=== PATIENT | female | born 1945 | race Caucasian/White ===

== ENCOUNTER 2022-05-02 14:59 | Outpatient (CLI) | payer MEDICARE, SELFPAY ==
--- NOTE | ~2022-05-02 | MM_ITS ---
EXAMINATION: MM screening karl BI w meghan HISTORY: Screening TECHNIQUE: Craniocaudal and mediolateral oblique 3-D tomosynthesis images were obtained and synthetic 2-D images were generated. CAD analysis was submitted and interpreted. COMPARISON: Comparison to multiple prior studies sequentially, with oldest reviewed study dated 10/28. BREAST PARENCHYMAL COMPOSITION: The breasts are extremely dense, which lowers the sensitivity of mamm ography FINDINGS: There is no evidence of suspicious mass, calcification, or architectural distortion to sugg est malignancy in either breast. There has been no suspicious interval change. IMPRESSION: 1. No mammographic evidence of malignancy. 2. Recommend routine screening mammography in one year. BI-RADS Category 1: Negative Reviewed, dictated and finalized at location A.
--- NOTE | ~2022-05-02 | DEXA_ITS ---
Bone Density Report Name: HARRY STUART Age: 76 Sex: Female Ethnicity: White Date of : 1945 Indication: postmenopausal; screening for osteoporosis; Referring Provider: KRIS AREVALO Study: Bone densitometry was performed. Exam Date: May 02, 2022 Accession number: [id number] Bone Density: Region BMD T-score Z-score Classification AP Spine(L1-L4) 0.801 -2.2 0.3 Osteopenia Femoral Neck (Left) 0.606 -2.2 0.0 Osteopenia Total Hip (Left) 0.505 -3.6 -1.7 Osteoporosis Femoral Neck (Right) 0.629 -2.0 0.2 Osteopenia Total Hip (Right) 0.756 -1.5 0.3 Osteopenia Total Hip Mean 0.630 -2.6 -0.7 Osteoporosis World Health Organization criteria for BMD impression classify patients as: Normal (T-score at or above -1.0), Osteopenia (T-score between -1.0 and -2.5), or Osteoporosis (T-score at or below -2.5). Clinical Information Provided by Patient: Smokes Has used the following medications: Vitamin D, Calcium Patient maximum height was 66 Menopause Age: 50 No regular weight bearing exercise Onset of menses at age 14 Number of children 2 Impression: The patient has osteoporosis, based on the Left Total Hip T-score. The patient has risk factors, including: smoking. Discussion: INCREASED RISK OF FRACTURE. BONE DENSITY IS UNDESIRABLY LOW AT ONE OR MORE SKELETAL SITES, CONSISTENT WITH POSTMENOPAUSAL OSTEOPOROSIS. This patient's lowest T-score meets the World Health Organization's (WHO) criteria for osteoporosis at one or more sites (T-score -2.5 or below). In untreated patients, the risk of osteoporotic fracture increases approximately two-fold for each 1.0 SD decrease in T-score. Low bone density is not the only risk factor for fracture; also consider factors such as patient's age, frailty or poor health, risk of falling, risk of injury, previous osteoporotic fracture, family history of osteoporosis, cigarette smoking, low body weight, etc. Not everyone with low bone mineral density has osteoporosis; osteomalacia and other metabolic bone disorders should also be considered. Patients who have osteoporosis should be evaluated for specific diseases and conditions (secondary causes) that may cause or contribute to bone loss. The [place] Association [employer] Endocrinologists (AACE) and National Osteoporosis Foundation (NOF) recommend pharmacologic intervention for all postmenopausal women whose T-score is in this range. The patient should follow a healthful lifestyle (good nutrition with adequate calcium and vitamin D, and appropriate weight-bearing exercise). Follow-Up: Consider a repeat BMD and Vertebral Fracture Assessment (VFA) exam in 2 years or sooner if medically necessary, to reassess this patient's status. Reported by: MAURY on 05/02/2022 3:26:00 PM. Reviewed, dictated and finalized at location AAna MAYFIELD
== END 2022-05-02 15:00 | disposition home or self-care (01) ==
PROVIDERS: PCP Family Medicine; Visit Provider Nurse Practitioner Family
DX: Z12.31 Encounter for screening mammogram for malignant neoplasm of breast (principal); Z78.0 Asymptomatic menopausal state; M85.89 Other specified disorders of bone density and structure, multiple sites
CPT/HCPCS: 77063; 77067; 77080

== ENCOUNTER 2022-08-18 15:27 | Outpatient (CLI) | payer MEDICARE, SELFPAY ==
[2022-08-18 19:15] LABS: Alanine Aminotransferase 15 U/L (6-35); Albumin Level 4.7 g/dL (3.5-5.1); Alkaline Phosphatase 75 U/L (38-126); Anion Gap 16 mmol/L (8-16); Aspartate Amino Transferase 24 U/L (14-36); Bilirubin,Total 0.5 mg/dL (0.2-1.3); Blood Urea Nitrogen 10 mg/dL (7-17); Calcium 10.4 mg/dL (8.4-10.2); Carbon Dioxide 28 mmol/L (22-30); Chloride 89 mmol/L (98-107); Estimated Glomerular Filt Rate > 60; Glucose 113 mg/dL (65-110); Potassium 3.1 mmol/L (3.4-5.0); Sodium 133 mmol/L (137-145)
[2022-08-18 19:33] LABS: Vitamin D 25 Hydroxy 96.2 ng/mL
== END 2022-08-18 15:28 | disposition home or self-care (01) ==
PROVIDERS: PCP Family Medicine; Visit Provider Nurse Practitioner Family
DX: E55.9 Vitamin D deficiency, unspecified (principal); I10 Essential (primary) hypertension
CPT/HCPCS: 36415; 80053; 82306

== ENCOUNTER 2024-01-08 09:21 | Outpatient (CLI) | payer MEDICARE, SELFPAY ==
[2024-01-08 13:34] LABS: Basophils Absolute Auto 0.1 K/mm3 (0.0-0.1); Basophils Percent Auto 1.1 % (0.2-1.2); Eosinophils Absolute Auto 0.2 K/mm3 (0-0.3); Eosinophils Percent Auto 1.8 % (0-4.4); Hematocrit 45.2 % (37.0-47.0); Hemoglobin 15.1 g/dL (12.0-15.0); Immature Granulocyte Absolute 0.04 K/mm3 (0.00-0.031); Immature Granulocyte Percent A 0.4 % (0-0.5); Lymphocytes Percent Auto 35.3 % (18.3-44.2); Mean Corpuscular HGB Conc 33.4 g/dl (32-36); Mean Corpuscular Hemoglobin 29.8 pg (26-34); Mean Corpuscular Volume 89.3 fl (80-100); Mean Platelet Volume 11.6 fl (7.4-10.4); Monocytes Absolute Auto 1.1 K/mm3 (0.1-0.6); Monocytes Percent Auto 9.5 % (2.6-8.5); Neutrophils Absolute Auto 5.9 K/mm3 (1.3-6.7); Neutrophils Percent Auto 51.9 % (45.5-73.1); Platelet Count Result 287 k/mm3 (150-375); Red Blood Count 5.06 M/mm3 (4.2-5.4); Red Cell Distribution Width 14.8 % (11.5-14.5); White Blood Count 11.3 K/mm3 (4.5-10.0)
[2024-01-08 13:55] LABS: LDL Cholesterol Direct 160 mg/dL
[2024-01-08 14:35] LABS: Alanine Aminotransferase 10 U/L (6-35); Albumin Level 4.3 g/dL (3.5-5.1); Alkaline Phosphatase 79 U/L (38-126); Anion Gap 8 mmol/L (4-12); Aspartate Amino Transferase 41 U/L (14-36); Bilirubin,Total 0.9 mg/dL (0.2-1.3); Blood Urea Nitrogen 13 mg/dL (7-17); Calcium 10.1 mg/dL (8.4-10.2); Carbon Dioxide 29 mmol/L (22-30); Chloride 95 mmol/L (98-107); Cholesterol 234 mg/dL (0-200); Estimated Glomerular Filt Rate > 60; Glucose 99 mg/dL (65-110); HDL Direct 43 mg/dL; Potassium 2.8 mmol/L (3.4-5.0); Sodium 132 mmol/L (137-145); Triglycerides 152 mg/dL (<150)
[2024-01-11 22:00] LABS: Vitamin D 1,25 (OH)2 Total 21 pg/mL (18-72); Vitamin D2 1,25 (OH)2 <8 pg/mL; Vitamin D3 1,25 (OH)2 21 pg/mL
== END 2024-01-08 09:22 | disposition home or self-care (01) ==
LOC: ANHGOSHLAB 09:23
PROVIDERS: PCP Family Medicine; Visit Provider Nurse Practitioner Family
DX: E55.9 Vitamin D deficiency, unspecified (principal); I10 Essential (primary) hypertension
CPT/HCPCS: 36415; 80053; 80061; 82652; 85025

== ENCOUNTER 2024-02-17 15:37 | Outpatient (CLI) | payer MEDICARE, SELFPAY ==
[2024-02-17 20:59] LABS: Potassium 4.1 mmol/L (3.4-5.0); Sodium 137 mmol/L (137-145)
[2024-02-17 21:00] LABS: Alanine Aminotransferase 11 U/L (6-35); Albumin Level 4.3 g/dL (3.5-5.1); Alkaline Phosphatase 91 U/L (38-126); Anion Gap 6 mmol/L (4-12); Aspartate Amino Transferase 24 U/L (14-36); Bilirubin,Total 0.6 mg/dL (0.2-1.3); Blood Urea Nitrogen 9 mg/dL (7-17); Calcium 10.6 mg/dL (8.4-10.2); Carbon Dioxide 27 mmol/L (22-30); Chloride 104 mmol/L (98-107); Cholesterol 156 mg/dL (0-200); Estimated Glomerular Filt Rate > 60; Glucose 102 mg/dL (65-110); HDL Direct 51 mg/dL; Triglycerides 178 mg/dL (<150)
[2024-02-17 21:11] LABS: LDL Cholesterol Direct 85 mg/dL
[2024-02-17 22:34] LABS: Vitamin D 25 Hydroxy 75.5 ng/mL
== END 2024-02-17 15:38 | disposition home or self-care (01) ==
PROVIDERS: PCP Family Medicine; Visit Provider Nurse Practitioner
DX: E78.5 Hyperlipidemia, unspecified (principal); E55.9 Vitamin D deficiency, unspecified
CPT/HCPCS: 36415; 80053; 80061; 82306

== ENCOUNTER 2024-04-07 12:27 | Emergency (ER) | payer MEDICARE, SELFPAY ==
--- NOTE | ~2024-04-07 | XR_ITS ---
EXAMINATION: XR pelvis 1-2V DATE: 04/07/2024 13:37 INDICATION: Fall at home TECHNIQUE: An anteroposterior view of the pelvis was obtained. COMPARISON: None. FINDINGS: Mild lumbar levocurvature. There is at least mild likely more severe lumbar spondylosis including mod erate to severe lower lumbar facet osteoarthritis. Bone alignment is otherwise normal. No fracture. M ild osteoarthritis at the bilateral hip and sacroiliac joints. Atherosclerotic calcification is at th e bilateral iliac arteries. IMPRESSION: 1. Degenerative skeletal changes detailed above. No acute osseous adenopathy. Reviewed, dictated and finalized at location B.
--- NOTE | ~2024-04-07 | XR_ITS ---
EXAMINATION: XR shoulder LT min 2V DATE: 04/07/2024 13:37 INDICATION: Left shoulder pain post fall TECHNIQUE: AP internally and externally rotated, AP oblique externally rotated and transscapular Y vi ews of the left shoulder were obtained. COMPARISON: None FINDINGS: Comminuted proximal left humeral fracture which includes a transverse fracture across the surgical ne ck which has migrated 2 cm proximally. There is approximately 3740 degree posterior angulation result ing from rotation of the humeral head fragment with respect to the glenoid as with elevation of the a rm. There is an additional small fracture fragment comprising the posterior facet of the greater tube rosity which is displaced partially 5 mm laterally with respect to the remainder of the humeral head. No other fractures identified. Mild to moderate glenohumeral osteoarthritis and moderate osteoarthri tis at the acromioclavicular joint. There is some soft tissue swelling about the shoulder. Visualized portion of the lungs are clear. IMPRESSION: Comminuted two-part fracture of the proximal left humerus. Reviewed, dictated and finalized at location B.
--- NOTE | 2024-04-07 13:00 | ED.GENADULT ---
HPI - General Adult General Chief complaint: Extremity Injury, Upper Stated complaint: Left Shoulder Pain Time Seen by Provider: 04/07/24 13:04 Source: patient, family and RN notes reviewed Mode of arrival: wheelchair Limitations: no limitations History of Present Illness HPI narrative: 78 year old female accompanied by family members with patient reporting pain to her left shoulder and upper arm and also to left lower back area after sustaining a fall at home today around 1000.Family reports that patient did not have loss of consciousness. Patient wears a brace to left leg due to having polio as chid. Patient is unable to move her left arm without pain to the upper humerus reports no acute pain at rest to her left arm, pulses palpable left arm of adequate quality. Fall was unwitnessed by family members. Patient is poor historian. MD complaint: fall pain left shoulder, left lower back Onset (ago): hour(s) (1000 today) Severity scale (1-10): 3 Treatments prior to arrival: none Related Data Home Medications Medication Instructions Recorded Confirmed aspirin 81 mg tablet,delayed 81 mg PO DAILY 08/25/19 04/08/24 release (Adult Low Dose Aspirin) calcium carbonate 600 mg-vitamin 1 tablet PO DAILY 08/25/19 04/08/24 D3 10 mcg (400 unit) tablet (Calcium with Vitamin D) multivit-iron 18 mg-folic acid 400 1 tablet PO DAILY 08/25/19 04/08/24 mcg-calcium 500 mg-minerals tablet (Women's Daily Formula) cholecalciferol (vitamin D3) 125 5,000 unit PO .every other day 08/19/22 04/08/24 mcg (5,000 unit) tablet alendronate 70 mg tablet 70 mg PO WEEKLY 02/17/24 04/08/24 Allergies Allergy/AdvReac Type Severity Reaction Status Date / Time No Known Allergies Allergy Mild Verified 04/08/24 11:07 Review of Systems Review of Systems: CONSTITUTIONAL: Denies fever, chills, or sweats. EYES: Denies visual changes, redness, or discharge. ENT: Denies rhinorrhea, congestion, sore throat, or otalgia. CARDIOVASCULAR: Denies chest pain, palpitations, or edema. RESPIRATORY: Denies cough or dyspnea. GASTROINTESTINAL: Denies abdominal pain, nausea, vomiting, or diarrhea. GENITOURINARY: Denies dysuria or hematuria. SKIN: Denies rash or itching. MUSCULOSKELETAL: Reports left lower back pain, left shoulder pain, or myalgia from fall at home today. NEUROLOGIC: Denies headache, numbness, or weakness. PSYCHIATRIC: Denies anxiety or depression. All systems reviewed & are unremarkable except as noted in HPI and below PMFSH Past Medical History Medical History (Updated 04/09/24 @ 08:38 by Judy Moncada NP) Atopic eczema COPD (chronic obstructive pulmonary disease) Dementia Essential (primary) hypertension Hyperlipidemia Normal colonoscopy (~11/2012) Dr Erickson Osteoporosis started Fosamax 05/12/22 Post-polio syndrome Vitamin D deficiency Surgical History Surgical History (Updated 04/09/24 @ 08:23 by Judy Moncada NP) H/O tubal ligation History of tonsillectomy S/P appendectomy S/P foot surgery, left foot correction due to polio Family History Family History Father Family history of Alzheimer's disease Mother Family history of Alzheimer's disease Sibling Family history of Alzheimer's disease Social History Social History Social History: Patient is a , she has 2 children, several grandchildren and great-grandchildren that live near by. She lives in her own home, continues to drive but prefers to stay home most days. Her grandson does her grocery shopping. Recently family moved patient in with grandson due to her declining health Years smoked: 57 Smoking status: Current every day smoker Tobacco type: cigarettes Alcohol intake: never Substance use: never Substance use type: does not use Lack of Transportation: No Lack of Food: Never True Current Housing: I Have Housing Concerned A
[2024-04-07 13:01] VITALS: BP 116/73; PULSE 56; RESP 16; TEMP 36.1; O2SAT 99
== END 2024-04-07 14:55 | disposition home or self-care (01) ==
PROVIDERS: Emergency Provider Registered Nurse
DX: S42.212A Unspecified displaced fracture of surgical neck of left humerus, initial encounter for closed fracture (principal); S42.252A Displaced fracture of greater tuberosity of left humerus, initial encounter for closed fracture; W19.XXXA Unspecified fall, initial encounter; M54.50 Low back pain, unspecified; F17.210 Nicotine dependence, cigarettes, uncomplicated; J44.9 Chronic obstructive pulmonary disease, unspecified; I10 Essential (primary) hypertension; E78.5 Hyperlipidemia, unspecified; M81.0 Age-related osteoporosis without current pathological fracture; E55.9 Vitamin D deficiency, unspecified; Z79.82 Long term (current) use of aspirin
CPT/HCPCS: 72170; 73030; 99214; A4565; G0463

== ENCOUNTER 2024-07-11 13:37 | Outpatient (CLI) | payer MEDICARE, SELFPAY ==
--- NOTE | ~2024-07-11 | XR_ITS ---
Left foot Technique: AP and lateral views were obtained. Clinical History: Swollen third toe Findings: No acute fracture or dislocation is seen. Osseous alignment is anatomic. Possible fusion of the subtalar joints. Remaining joint spaces appear intact. Soft tissues are unremarkable. Impression: No acute abnormality identified. Suspected fusion of the subtalar joints. Reviewed, dictated and finalized at location . Impression: No acute abnormality identified. Suspected fusion of the subtalar joints.
== END 2024-07-11 13:38 | disposition home or self-care (01) ==
PROVIDERS: PCP Family Medicine; Visit Provider Nurse Practitioner Family
DX: S90.122A Contusion of left lesser toe(s) without damage to nail, initial encounter (principal); X58.XXXA Exposure to other specified factors, initial encounter; M79.89 Other specified soft tissue disorders
CPT/HCPCS: 73620

== ENCOUNTER 2024-08-03 15:29 | Outpatient (CLI) | payer MEDICARE, SELFPAY ==
[2024-08-03 16:52] LABS: Alanine Aminotransferase 12 U/L (6-35); Aspartate Amino Transferase 50 U/L (14-36)
== END 2024-08-03 15:30 | disposition home or self-care (01) ==
LOC: ANHGOSHLAB 15:31
PROVIDERS: PCP Family Medicine; Visit Provider Podiatrist Foot & Ankle Surgery
DX: B35.1 Tinea unguium (principal)
CPT/HCPCS: 36415; 84450; 84460

== ENCOUNTER 2024-09-13 14:31 | Outpatient (CLI) | payer MEDICARE, SELFPAY ==
--- NOTE | ~2024-09-13 | MR_ITS ---
EXAMINATION: MR brain/brain stem wo con DATE: 09/13/2024 15:15 INDICATION: Unspecified dementia. TECHNIQUE: Magnetic resonance imaging (MRI) of the brain and brainstem was performed without intraven ous contrast. COMPARISON: None. FINDINGS: There are scattered areas of nonspecific increased T2-weighted signal intensity in the cere bral white matter and ho. There is no intracranial hemorrhage, acute infarction, or abnormal intrac ranial mass lesion. The ventricles are normal in size. The orbits are normal. There is mild mucosal t hickening in the paranasal sinuses. There are trace bilateral mastoid effusions. IMPRESSION: 1. Moderate nonspecific cerebral white matter disease and pontine disease, which likely represents ch ronic small vessel ischemic disease. Reviewed, dictated and finalized at location A. RATORY ASST IMPRESSION: 1. Moderate nonspecific cerebral white matter disease and pontine disease, whic h likely represents chronic small vessel ischemic disease.
== END 2024-09-13 14:32 | disposition home or self-care (01) ==
LOC: GOSHIMG 14:31
PROVIDERS: PCP Family Medicine; Visit Provider Family Medicine
DX: F03.90 Unspecified dementia, unspecified severity, without behavioral disturbance, psychotic disturbance, mood disturbance, and anxiety (principal); R90.82 White matter disease, unspecified
CPT/HCPCS: 70551

== ENCOUNTER 2024-10-04 10:59 | Outpatient (CLI) | payer MEDICARE, SELFPAY ==
[2024-10-04 14:31] LABS: Basophils Absolute Auto 0.1 K/mm3 (0.0-0.1); Basophils Percent Auto 1.4 % (0.2-1.2); Eosinophils Absolute Auto 0.3 K/mm3 (0-0.3); Eosinophils Percent Auto 3.3 % (0-4.4); Hematocrit 43.7 % (37.0-47.0); Hemoglobin 14.1 g/dL (12.0-15.0); Immature Granulocyte Absolute 0.02 K/mm3 (0.00-0.031); Immature Granulocyte Percent A 0.3 % (0-0.5); Lymphocytes Absolute Auto 2.81 K/mm3 (0.9-3.2); Lymphocytes Percent Auto 35.4 % (18.3-44.2); Mean Corpuscular HGB Conc 32.3 g/dl (32-36); Mean Corpuscular Hemoglobin 28.8 pg (26-34); Mean Corpuscular Volume 89.4 fl (80-100); Mean Platelet Volume 11.9 fl (7.4-10.4); Monocytes Absolute Auto 0.6 K/mm3 (0.1-0.6); Monocytes Percent Auto 7.9 % (2.6-8.5); Neutrophils Absolute Auto 4.1 K/mm3 (1.3-6.7); Neutrophils Percent Auto 51.7 % (45.5-73.1); Platelet Count Result 261 k/mm3 (150-375); Red Blood Count 4.89 M/mm3 (4.2-5.4); White Blood Count 7.9 K/mm3 (4.5-10.0)
[2024-10-04 14:36] LABS: Alanine Aminotransferase 14 U/L (6-35); Albumin Level 4.2 g/dL (3.5-5.1); Alkaline Phosphatase 73 U/L (38-126); Anion Gap 2 mmol/L (4-12); Aspartate Amino Transferase 61 U/L (14-36); Bilirubin,Total 0.5 mg/dL (0.2-1.3); Blood Urea Nitrogen 18 mg/dL (7-17); Calcium 9.9 mg/dL (8.4-10.2); Carbon Dioxide 29 mmol/L (22-30); Chloride 105 mmol/L (98-107); Cholesterol 160 mg/dL (0-200); Estimated Glomerular Filt Rate > 60; Glucose 96 mg/dL (65-110); HDL Direct 56 mg/dL; Potassium 4.1 mmol/L (3.4-5.0); Sodium 136 mmol/L (137-145); Triglycerides 123 mg/dL (<150)
[2024-10-04 14:48] LABS: LDL Cholesterol Direct 59 mg/dL
[2024-10-04 15:03] LABS: Hemoglobin A1C 5.4 % (<5.7)
[2024-10-04 15:47] LABS: Folic Acid > 20.0 ng/mL (2.76->20)
[2024-10-08 08:47] LABS: Vitamin B6 38.2 ng/mL (2.1-21.7)
== END 2024-10-04 11:00 | disposition home or self-care (01) ==
PROVIDERS: PCP Family Medicine; Visit Provider Family Medicine
DX: F03.90 Unspecified dementia, unspecified severity, without behavioral disturbance, psychotic disturbance, mood disturbance, and anxiety (principal); R41.89 Other symptoms and signs involving cognitive functions and awareness; I10 Essential (primary) hypertension; E55.9 Vitamin D deficiency, unspecified; E78.5 Hyperlipidemia, unspecified; R73.9 Hyperglycemia, unspecified; Z00.00 Encounter for general adult medical examination without abnormal findings; E53.8 Deficiency of other specified B group vitamins
CPT/HCPCS: 36415; 80053; 80061; 82306; 82607; 82746; 83036; 84207; 84443; 85025

== ENCOUNTER 2025-01-09 15:57 | Outpatient (CLI) | payer MEDICARE, SELFPAY ==
[2025-01-09 17:06] LABS: Alanine Aminotransferase 24 U/L (6-35); Aspartate Amino Transferase 34 U/L (14-36)
--- OUTSIDE RECORDS SUMMARY | 2025-01-09 17:19 | XMS_ITS | Clinical Summary ---
Author Organization [facility] Address [facility] [place] [address] Care Team Providers Care Air Chief Marshal Name Role Phone None, Provider MD Primary Care Provider Unavaila ble Allergies No known active allergies Medications HYDROcodone-acet aminophen (NORCO) 5-325 MG tabletIndication s:Acute Pain < 7 Day Supply Take 1 tablet by mouth every 6 (six) hours as needed. Indications : Acute Pain < 7 Day Supply 15 tablet 04/13/2024 Active Social History Tobacco Use Types Packs/Day Years Used Date Smoking Tobacco: Every Day Cigarettes Smokeless Tobacco: Never Tobacco Cessation:Ready to Q uit: Not Asked; Counseling Given: Not Answered Alcohol Use Standard Drinks/Week Comments Not Currently 0 (1 standard drink = 0.6 oz pur e alcohol) Comments Unknown Sex and Gender Information Value Date Recorded Sex Assigned at Not on file Legal Sex Female 3:12 PM CDT Gender Identity Not on file Sexual Orientation Not on file Last Filed Vital Signs Vital Sign Reading Time Taken Comments Blood Pressure 111/54 04/13/2024 6:30 PM CDT Pulse 67 04/13/2024 6:30 PM CDT Temperature 36.6 C (97.9 F) 04/13/2024 3:13 PM CDT Respiratory Rate 20 04/13/2024 6:30 PM CDT Oxygen Saturation 98% 04/13/2024 6:30 PM CDT Inhaled Oxygen Concentration - - Weight 49.9 kg (110 lb) 04/13/2024 3:13 PM CDT Height 165.1 cm (5' 5 ) 04/13/2024 3:13 PM CDT Body Mass Index 18.3 04/13/2024 3:13 PM CDT Plan of Treatment Health Maintenance Due Date Last Done Comments Hepatitis C 1963 DTaP, Tdap and Td Vaccines ( 1 - Tdap) 1964 Zoster Vaccines (1 of 2) 1995 Annual Medicare Wellness Visit 2010 Dexa Scan (General) 2010 Pneumococcal Vaccine: 65+ Years (2 of 2 - PCV) 10/12/2016 10/12/2015, 10/12/2014 RSV Immunization or 60+ Years (1 - 1-dose 75+ series) 2020 COVID-19 Vaccine (1 - 2023-2 5 season) 2024 Meningococcal B Vaccine Aged Out No l onger eligible based on patient's age to complete this topic Meningococcal Vaccine Aged Out No arun farhan eligible based on patient's age to complete this topic RSV Immunizations Under 20 Months Aged Out No longer eligible b ased on patient's age to complete this topic Insurance MEDICAID Care Teams Air Chief Marshal Relationship Specialty Start Date End Date None, Provider, MD PCP - General UNKNOWN PHYSICIAN SPECIALTY 04/13/24
== END 2025-01-09 15:58 | disposition home or self-care (01) ==
LOC: ANHLAB 15:59
PROVIDERS: PCP Family Medicine; Visit Provider Podiatrist Foot & Ankle Surgery
DX: B35.1 Tinea unguium (principal)
CPT/HCPCS: 36415; 84450; 84460

== ENCOUNTER 2025-02-28 15:50 | Outpatient (CLI) | payer MEDICARE, SELFPAY ==
[2025-02-28 18:56] LABS: Alanine Aminotransferase 16 U/L (6-35); Albumin Level 4.3 g/dL (3.5-5.1); Alkaline Phosphatase 72 U/L (38-126); Anion Gap 9 mmol/L (4-12); Aspartate Amino Transferase 36 U/L (14-36); Bilirubin,Total 0.3 mg/dL (0.2-1.3); Blood Urea Nitrogen 20 mg/dL (7-17); Calcium 9.5 mg/dL (8.4-10.2); Carbon Dioxide 30 mmol/L (22-30); Chloride 100 mmol/L (98-107); Estimated Glomerular Filt Rate > 60; Glucose 95 mg/dL (65-110); Potassium 4.2 mmol/L (3.4-5.0); Sodium 139 mmol/L (137-145)
== END 2025-02-28 15:51 | disposition home or self-care (01) ==
LOC: ANHGOSHLAB 15:51
PROVIDERS: PCP Family Medicine; Visit Provider Family Medicine
DX: I10 Essential (primary) hypertension (principal)
CPT/HCPCS: 36415; 80053

== ENCOUNTER 2025-04-10 15:42 | Outpatient (CLI) | payer MEDICARE, SELFPAY ==
--- OUTSIDE RECORDS SUMMARY | 2025-04-10 15:50 | XMS_ITS | Clinical Summary ---
Author Organization [facility] Address [facility] [place] [address] Care Team Providers Care Pinsetter Mechanic Automatic Name Role Phone None, Provider MD Primary [...] 3:13 PM CDT Height 165.1 cm (5' 5) 04/13/2024 3:13 PM CDT Body Mass Index 18.3 04/13/2024 3:13 PM CDT Plan of Treatment Health Maintenance Due Date Last Done Comments Hepatitis C 1963 DTaP, Tdap and Td Vaccines ( 1 - Tdap) 1964 Zoster Vaccines (1 of 2) 1995 Annual Medicare Wellness Visit 2010 Dexa Scan (General) 2010 Pneumococcal Vaccine: 50+ Years (2 of 2 - PCV) 10/12/2016 [...] complete this topic Insurance MEDICAID Care Teams Pinsetter Mechanic Automatic Relationship Specialty Start Date End Date None, Provider, MD PCP - General UNKNOWN PHYSICIAN SPECIALTY 04/13/24
[2025-04-10 16:22] LABS: Alanine Aminotransferase 16 U/L (6-35); Aspartate Amino Transferase 40 U/L (14-36)
== END 2025-04-10 15:43 | disposition home or self-care (01) ==
PROVIDERS: PCP Family Medicine; Visit Provider Podiatrist Foot & Ankle Surgery
DX: B35.1 Tinea unguium (principal)
CPT/HCPCS: 36415; 84450; 84460

== ENCOUNTER 2025-07-10 15:35 | Outpatient (CLI) | payer MEDICARE, SELFPAY ==
--- OUTSIDE RECORDS SUMMARY | 2025-07-10 16:25 | XMS_ITS | Clinical Summary ---
Author Organization [facility] Address [facility] [place] [address] Care Team Providers Care Transportation Modeler Name Role Phone None, Provider MD Primary [...] COVID-19 Vaccine (1 - 2023-2 5 season) 2025 Meningococcal B Vaccine Aged Out No l onger eligible based on patient's age to complete this topic Meningococcal Vaccine Aged Out No arun farhan eligible based on patient's age to complete this topic RSV Immunizations Under 20 Months Aged Out No longer eligible b ased on patient's age to complete this topic Insurance MEDICAID Care Teams Transportation Modeler Relationship Specialty Start Date End Date None, Provider, MD PCP - General UNKNOWN PHYSICIAN SPECIALTY 04/13/24
[2025-07-10 16:31] LABS: Alanine Aminotransferase 15 U/L (6-35); Aspartate Amino Transferase 53 U/L (14-36)
== END 2025-07-10 15:36 | disposition home or self-care (01) ==
LOC: ANHLAB 15:36
PROVIDERS: PCP Family Medicine; Visit Provider Podiatrist Foot & Ankle Surgery
DX: B35.1 Tinea unguium (principal)
CPT/HCPCS: 36415; 84450; 84460